=== PATIENT | male | born 1975 | race Two or more races ===

== ENCOUNTER 2023-02-26 11:59 | Emergency (ER) | payer SELFPAY ==
[~2023-02-26] VITALS: Ht 167.6 cm; Wt 59.0 kg
[2023-02-26 13:30] VITALS: BP 139/96
[2023-02-26] MEDS ORDERED: ONDA4ODT MM (13:49)
[2023-02-26] MEDS ORDERED: NARCAN4 M1 (13:49)
== END 2023-02-26 14:12 | disposition home or self-care (01) ==
LOC: ER 11:59
DX: T40.411A Poisoning by fentanyl or fentanyl analogs, accidental (unintentional), initial encounter (principal); R11.2 Nausea with vomiting, unspecified; X58.XXXA Exposure to other specified factors, initial encounter
CPT/HCPCS: 96361; 96374; 99284-25; J2405; J7030